=== PATIENT | male | born 1990 | race Caucasian/White ===

== ENCOUNTER 2020-04-11 14:04 | Emergency (ER) | payer OTHER ==
[2020-04-11] MEDS ORDERED: Ondansetron 4 MG Tab.DIS PO ONE (14:52)
[2020-04-11] MEDS ORDERED: Sodium Chloride 0.9% 1,000 ML IV ONE ×2 (14:52→16:56)
--- NOTE | 2020-04-11 15:03 | EDM.PDOC ---
<AlfredaSandy M - Last Filed: 04/11/20 20:52> ED HPI GENERAL MEDICAL PROBLEM - General Chief Complaint: General Stated Complaint: HEAT EXHAUSTION Time Seen by Provider: 04/11/20 14:34 Source of Information: Reports: Patient, RN, RN Notes Reviewed, Significant Other History Limitations: Reports: No Limitations - History of Present Illness INITIAL COMMENTS - FREE TEXT/NARRATIVE: Pt arrive with spouse private vehicle after speaking with Haung Lucas about probable heat exhaustion. Pt played golf all day on Friday when heat index was high. N/V since Friday. Weakness, fatigue, diaphoresis, with elevated blood glucose. Pt is a type 1 DM and was advised by health insurance to have ketones checked. Denies pain or distress. Onset: Other Onset Date: 04/08/20 Duration: Day(s):, Recurring Location: Reports: Other (Generalized weakness) Quality: Reports: Other (Weakness and fatigue from heat exhaustion) Improves with: Reports: Rest Worsens with: Reports: Eating, Movement Associated Symptoms: Reports: Diaphoresis, Loss of Appetite, Nausea/Vomiting, Weakness - Related Data Allergies Allergy/AdvReac Type Severity Reaction Status Date / Time No Known Allergies Allergy Verified 04/11/20 14:27 Home Meds: Home Meds Insulin Pump/Infus. Set/Meter [Accu-Chek Combo System] 1 each MC DAILY 04/11/20 [History] Past Medical History Endocrine/Metabolic History: Reports: Diabetes, Type I Insulin Pump Model and Hyster Machine Operator: humalog insuline pump Who Manages Your Pump: Patient (Self) Basal Rate (Units/hr): senatiiveity of 40mg per deciliter per unit max basil rate is 2 units per h Units of Insulin Per Gram of Carbohydrates:: 9.5gms per unit Patient Able to Demonstrate: Current Pump Settings (Basal Rates), Describe How to Change Infusion Set & Insertion Set - Infectious Disease History Infectious Disease History: Reports: Chicken Pox Social & Family History - Caffeine Use Caffeine Use: Reports: None - Recreational Drug Use Recreational Drug Type: Reports: Marijuana/Hashish Recreational Drug Use Frequency: Socially - Living Situation & Occupation Occupation: Employed (Single dwelling home) ED ROS GENERAL - Review of Systems Review Of Systems: See Below Constitutional: Reports: Malaise, Weakness, Diaphoresis, Decreased Appetite HEENT: Reports: No Symptoms Respiratory: Reports: No Symptoms Cardiovascular: Reports: No Symptoms Endocrine: Reports: High Glucose (Dm1) GI/Abdominal: Reports: Decreased Appetite, Nausea : Reports: No Symptoms Musculoskeletal: Reports: No Symptoms Skin: Reports: Diaphoresis Neurological: Reports: No Symptoms Psychiatric: Reports: No Symptoms Hematologic/Lymphatic: Reports: No Symptoms Immunologic: Reports: No Symptoms ED EXAM, GENERAL - Physical Exam Exam: See Below Exam Limited By: No Limitations General Appearance: Alert, Mild Distress Eye Exam: Bilateral Eye: PERRL Throat/Mouth: Normal Inspection Head: Normocephalic Neck: Normal Inspection Respiratory/Chest: No Respiratory Distress, Lungs Clear, Normal Breath Sounds, No Accessory Muscle Use Cardiovascular: Normal Peripheral Pulses, Regular Rate, Rhythm, No Edema, No Gallop, No Murmur, No Rub GI/Abdominal: Normal Bowel Sounds, Soft, Non-Tender, No Distention, Other (nausea ) (Male) Exam: Deferred Rectal (Males) Exam: Deferred Back Exam: Normal Inspection Extremities: Normal Inspection Neurological: Alert, Oriented, CN II-XII Intact, Normal Cognition Psychiatric: Normal Affect Skin Exam: Warm, Diaphoretic Course - Vital Signs Text/Narrative:: Physical exam. Spouse bedside. Labs and medication ordered. IVF up. PO taking in. Zofran given. Labs reviewed. 1L NS done. Will give another liter of NS and 25 mg PO Thorazine for continuing hiccups 2nd liter done. Thorazine given. Hiccups better. Will d/c home. Departure - Departure Time of Disposition: 18:03 Disposition: Home, Self-Care 01 Condition: Good Clinical Impression: Heat exhaustion Qualifiers: Encounter type: initial encounter Qualified Code(s): T67.5XXA - Heat exhaustion, unspecified, initial encounter - Discharge Information *PRESCRIPTION DRUG MONITORING PROGRAM REVIEWED*: Not Applicable *COPY OF PRESCRIPTION DRUG MONITORING REPORT IN PATIENT SHAHAB: Not Applicable Instructions: Heat Exhaustion Referrals: PCP,None [Primary Care Provider] - Forms: ED Department Discharge Additional Instructions: Please follow discharge instructions Drink plenty of fluids and start with a simple bland diet. Take Zofran as needed for nausea. In the event the symptoms do not subside, please come back or see your provider. Sepsis Event Note (ED) - Evaluation Sepsis Screening Result: No Definite Risk <Charles Burrows - Last Filed: 04/13/20 14:29> Course - Vital Signs Last Recorded V/S: Last Vital Signs Temp 97.8 F 04/11/20 14:25 Pulse 86 04/11/20 17:05 Resp 18 04/11/20 17:05 BP 139/91 H 04/11/20 17:05 Pulse Ox 98 04/11/20 17:05 - Orders/Labs/Meds Labs: Laboratory Tests 04/11/20 04/11/20 04/11/20 Range/Units 15:05 15:05 15:18 ABG Hemoglobin 16.5 (13.5-18.0) g/dL ABG Oxyhemoglobin 67.0 % ABG Carboxyhemoglobin 1.0 (0.0-1.6) % ABG Methemoglobin 0.9 % VBG pH 7.378 (7.350-7.450) VBG pCO2 37.1 mm/Hg VBG pO2 37.0 mm/Hg VBG HCO3 21.3 mmol/L VBG Total CO2 18.4 mmol/L VBG O2 Saturation 68.3 VBG O2 Content 15.5 %vol VBG Base Excess -2.8 mm/L O2 Delivery Device Room air Sodium 129 L (140-148) mmol/L Potassium 5.0 (3.6-5.2) mmol/L Chloride 92 L (100-108) mmol/L Carbon Dioxide 23 (21-32) mmol/L Anion Gap 19.0 H (5.0-14.0) mmol/L BUN 38 H (7-18) mg/dL Creatinine 1.7 H (0.8-1.3) mg/dL Est Cr Clr Drug Dosing 62.03 mL/min Estimated GFR (MDRD) 48 L (>60) Glucose 344 H (74-106) mg/dL Calcium 10.4 H (8.5-10.1) mg/dL Ketones Small H (NEGATIVE) Meds: Medications Discontinued Medications Generic Name Dose Route Start Last Admin Trade Name Jace PRN Reason Stop Dose Admin Chlorpromazine HCl 25 mg 04/11/20 17:07 04/11/20 17:08 Thorazine PO 04/11/20 17:08 25 mg ONETIME ONE Administration Sodium Chloride 1,000 mls @ 999 mls/hr 04/11/20 14:52 04/11/20 15:44 Normal Saline IV 04/11/20 15:52 999 mls/hr .BOLUS ONE Administration Sodium Chloride 1,000 mls @ 999 mls/hr 04/11/20 16:56 04/11/20 17:04 Normal Saline IV 04/11/20 17:56 999 mls/hr .BOLUS ONE Administration Ondansetron HCl 4 mg 04/11/20 14:52 04/11/20 15:39 Zofran Odt PO 04/11/20 14:53 4 mg ONETIME ONE Administration Attestation - Student - Attestation Statement Attestation Statement: I personally performed or re-performed the physical examination and medical decision making. I have verified all student documentation or findings, including history, physical exam and/or medical decision making.
[2020-04-11] MEDS ORDERED: chlorproMAZINE 25 MG Tab PO ONE (17:07)
== END 2020-04-11 18:17 | disposition home or self-care (01) ==
LOC: JP.ED 14:04
DX: T67.5XXA Heat exhaustion, unspecified, initial encounter (principal); R11.2 Nausea with vomiting, unspecified; E10.9 Type 1 diabetes mellitus without complications
CPT/HCPCS: 36415; 80048; 82009; 82803; 96360; 96361; 99284; A9270; J7040